=== PATIENT | male | born 1960 | race Native Hawaiian/Other Pacific Islander ===

== ENCOUNTER 2021-06-29 08:34 | Emergency (ER) | payer OTHER ==
[~2021-06-29] VITALS: Ht 177.8 cm; Wt 90.7 kg
[2021-06-29 08:34] VITALS: BP 131/69; TEMP 98.4
[2021-06-29 08:55] LABS: PLATELET COUNT 324 K/uL (142-355)
[2021-06-29 09:32] LABS: PARTIAL THROMBOPLASTIN TIME 24.7 SECONDS (24.5-33.6)
== END 2021-06-29 11:10 | disposition short-term general hospital (02) ==
LOC: ED 08:34
PROVIDERS: Hospitalist
DX: S32.491A Other specified fracture of right acetabulum, initial encounter for closed fracture (principal); S32.511A Fracture of superior rim of right pubis, initial encounter for closed fracture; S32.391A Other fracture of right ilium, initial encounter for closed fracture; S32.591A Other specified fracture of right pubis, initial encounter for closed fracture; Z11.52 Encounter for screening for COVID-19; W17.89XA Other fall from one level to another, initial encounter; Y92.098 Other place in other non-institutional residence as the place of occurrence of the external cause
CPT/HCPCS: 36415; 80048; 80320; 81000; 85027; 85610; 85730; 87635; 96360; 96365; 96375; 99285; J1170; J1885; J2270; J2405; J2543; U0003

== ENCOUNTER 2021-07-08 14:20 | Inpatient (IN) | payer BC ==
[~2021-07-08] VITALS: Ht 177.8 cm; Wt 89.5 kg
[2021-07-08 14:20] VITALS: BP 149/82; TEMP 98.5; Ht 177.8 cm; Wt 89.5 kg
[2021-07-08] MEDS ORDERED: APIX1TAB PO (15:37)
[2021-07-08] MEDS ORDERED: GRALISE600 MG PO (15:38)
[2021-07-08] MEDS ORDERED: TAMSULOSIN0.4 MG PO (15:40)
[2021-07-08] MEDS ORDERED: LISI10TA11 PO (15:41)
[2021-07-08] MEDS ORDERED: METF500T PO (15:41)
[2021-07-08 20:00] VITALS: BP 147/75; TEMP 98.7
[2021-07-09 08:00] VITALS: BP 131/67; TEMP 98.2
[2021-07-09 20:00] VITALS: BP 128/60; TEMP 98.1
[2021-07-10 08:00] VITALS: BP 113/71; TEMP 98.3
[2021-07-10 19:47] VITALS: BP 126/77; TEMP 98.7
[2021-07-11 08:00] VITALS: BP 151/85; TEMP 97.8
[2021-07-11 20:31] VITALS: BP 136/75; TEMP 98.6
[2021-07-12 20:52] VITALS: BP 111/64; TEMP 98.5
[2021-07-13 08:00] VITALS: BP 114/66; TEMP 98
[2021-07-13 20:30] VITALS: BP 116/62; TEMP 99.1
[2021-07-14 08:00] VITALS: BP 136/61; TEMP 97.8
[2021-07-14 20:17] VITALS: BP 116/66; TEMP 98.3
[2021-07-15 05:33] LABS: POTASSIUM 4.4 mmol/L (3.6-5.2)
[2021-07-15 08:00] VITALS: BP 127/71; TEMP 98.2
[2021-07-15 20:50] VITALS: BP 125/72; TEMP 98.3
[2021-07-16 08:00] VITALS: BP 135/82; TEMP 97
[2021-07-16 20:00] VITALS: BP 105/61; TEMP 98.6
[2021-07-17 08:00] VITALS: BP 101/57; TEMP 98.8
== END 2021-07-17 16:50 | disposition home or self-care (01) | DRG 560 ==
LOC: MED/SURG 14:20
PROVIDERS: ADMIT Family Medicine; ATTEND Family Medicine
DX: S32.491D Other specified fracture of right acetabulum, subsequent encounter for fracture with routine healing (principal); S32.811D Multiple fractures of pelvis with unstable disruption of pelvic ring, subsequent encounter for fracture with routine healing; W17.89XD Other fall from one level to another, subsequent encounter; D62 Acute posthemorrhagic anemia; N17.9 Acute kidney failure, unspecified; M62.81 Muscle weakness (generalized); R26.81 Unsteadiness on feet; Z74.1 Need for assistance with personal care; E11.9 Type 2 diabetes mellitus without complications; R53.81 Other malaise; G47.00 Insomnia, unspecified; N40.0 Benign prostatic hyperplasia without lower urinary tract symptoms; I12.9 Hypertensive chronic kidney disease with stage 1 through stage 4 chronic kidney disease, or unspecified chronic kidney disease
CPT/HCPCS: 36415; 80053; 87081